=== PATIENT | male | born 1955 | race Asian ===

== ENCOUNTER → 2020-10-03 09:17 | Outpatient (CLI) | payer MEDICARE, SELFPAY ==
[2020-10-03 10:20] LABS: COVID19 -Nasal RAPID Negative (Negative)
== END ==
PROVIDERS: Visit Provider Specialist
DX: Z20.822 Contact with and (suspected) exposure to COVID-19 (principal)
CPT/HCPCS: 87635; C9803

== ENCOUNTER 2020-10-04 08:02 | Day surgery (SDC) | payer MEDICARE, SELFPAY ==
[2020-10-04] VITALS (12 sets, daily range): BP systolic 100–157; BP diastolic 57–80; PULSE 67–88; RESP 12–65; TEMP 36.2–36.4; O2SAT 99–100
[2020-10-04] MEDS: LACTATED RINGERS 1,000 ML 200 ML IV (09:00)
--- NOTE | 2020-10-04 10:05 | P.HP_ITS ---
History of Present Illness History of Present Illness Date Patient Seen: 10/04/20 Time Patient Seen: 10:05 Chief complaint: SDC Narrative: The patient is a gentleman here for screening colonoscopy. No family history of colon cancer and no personal history of polyps. Patient last colonoscopy was 11 years ago. Patient History Medical History (Updated 10/04/20 @ 10:06 by Chevy Hobson MD) Hypertension Surgical History History of cataract surgery Family & Social History Social History: household members spouse Tobacco & Substance use: Smoking Status Never smoker alcohol intake never Substance Use Type does not use Meds Home Medications and Allergies Home Medications Medication Instructions Recorded Confirmed Type lisinopril 20 mg PO DAILY 10/04/20 10/04/20 History pioglitazone 15 mg PO DAILY 10/04/20 10/04/20 History Allergies Allergy/AdvReac Type Severity Reaction Status Date / Time No Known Drug Allergies Allergy Verified 10/04/20 09:04 Review of Systems Review of Systems ROS: Yes All systems reviewed with the patient and are negative except as otherwise documented Exam Vital Signs (past 8 hours): - 10/04/20 09:19 Temperature 97.1 F L Pulse Rate 88 Respiratory Rate 13 Blood Pressure 157/80 H Pulse Oximetry 99 Oxygen Delivery Method Room Air Narrative Exam Narrative: Pleasant cooperative patient no apparent distress. Lungs are clear to auscultation. No rales or rhonchi. Heart regular rate and rhythm no murmur gallop. Abdomen is soft nontender without mass. No obvious hernias. Patient is alert and oriented x3. Assessment & Plan Assessment & Plan narrative: The patient for a screening colonoscopy. I have discussed the procedure with them. Risks of bleeding, perforation which would necessitate major operation, failure to find remove all lesions, the potential t attoo were all discussed. All questions were answered. They wished to proceed.
--- NOTE | 2020-10-04 10:07 | PM.PREOP ---
Pre-operative Note COVID-19 COVID-19 status: Negative Result date/Date tested (Pos, Neg/Pending): 10/03/20 Interval Note History & Physical reviewed/Exam performed by Physician: Yes Changes to H&P: No ASA Class (for procedural sedation): II
[2020-10-04] MEDS: fentaNYL 250 MCG/5 ML INJ IV (11:00)
[2020-10-04] MEDS: MIDAZOLAM 5 MG/5 ML VIAL IV (11:00)
--- NOTE | 2020-10-04 11:21 | PM.OP.ENDO ---
Operative Date/Time/Diagnoses Date of procedure: 10/04/20 Time of procedure: 11:21 Pre-op diagnosis: Screening examination. Last exam 11 years ago. Post-op diagnosis: same (Diverticulosis) Procedure & Clinicians Study performed: Colonoscopy Same procedure as scheduled: Yes Indications: Screening for colon cancer Surgeon: Chevy Hobson Procedure Notes SCOAP/Timeout: Performed Procedure in detail: The patient was placed in the left lateral decubitus position and underwent IV sedation directed by the surgeon consisting of fentanyl and Versed. Digital exam was unremarkable. Prostate is normal without mass.. The scope was inserted and advanced through the rectum into the sigmoid, descending, transverse, and ascending colon. Patient was noted to have occasional sigmoid diverticulosis.. The cecum was reached identified by the ileocecal valve and the appendiceal opening. The ileocecal valve was successfully cannulated. The terminal ileum was normal in appearance. The scope was gradually brought out. No Polyps were found. The scope ultimately was retroflexed in the rectum. The appearance was remarkable for moderately sized internal hemorrhoids without ulceration.. The scope was removed and the patient tolerated the procedure well. Prep was excellent Scope withdrawal time: 9 minutes Sedation minutes: 16 Findings: diverticulosis (Sigmoid) Specimen(s): none sent Complications: none Post-procedure Recommendations: Colonscopy in 10 years Follow up: as needed Disposition: PACU
--- NOTE | 2020-10-04 12:50 | SUR.PHASEII ---
Assumed care of this pt, belly soft, no nausea, ready to go, called, pt left unit in stable condition
== END 2020-10-04 13:06 | disposition home or self-care (01) ==
PROVIDERS: Referring Provider Specialist; Visit Provider Specialist
PROC: 0DJD8ZZ Inspection of Lower Intestinal Tract, Via Natural or Artificial Opening Endoscopic (ICD-10-PCS; CPT 45378; principal; 2020-10-04 10:00)
DX: Z12.11 Encounter for screening for malignant neoplasm of colon (principal); I10 Essential (primary) hypertension; K57.30 Diverticulosis of large intestine without perforation or abscess without bleeding; K64.8 Other hemorrhoids
CPT/HCPCS: G0121; 99152; J2250; J3010